=== PATIENT | female | born 1975 | race Caucasian/White ===

== ENCOUNTER 2018-10-01 20:51 | Inpatient (IN) | payer MEDICAID ==
[~2018-10-01] VITALS: Ht 172.7 cm; Wt 86.9 kg
[2018-10-01] MEDS ORDERED: ACETAMINOPHEN 500 MG TABLET ONE (21:02)
--- NOTE | 2018-10-01 21:10 | NUR ---
PT GIVEN TYLENOL IN TRIAGE, TOLERATED WELL. EKG TAKEN IN TRIAGE.
[2018-10-01] MEDS ORDERED: THIAMINE 100MG TABLET ONE (21:25)
[2018-10-01] MEDS ORDERED: ONDANSETRON 2MG/ML, 2ML ONE (21:25)
[2018-10-01] MEDS ORDERED: LORazepam 2 MG/ML, 1ML ONE ×3 (21:26→22:30)
[2018-10-01] MEDS ORDERED: PLEASE ENTER ALLERGIES MC SCH (21:30)
[2018-10-01] MEDS ORDERED: LORazepam 2 MG/ML, 1ML IVPush ONE (21:30)
[2018-10-01] MEDS ORDERED: THIAMINE 100MG TABLET PO ONE (21:30)
[2018-10-01] MEDS ORDERED: ACETAMINOPHEN 500 MG TABLET PO ONE (21:30)
[2018-10-01] MEDS ORDERED: ONDANSETRON 2MG/ML, 2ML IVPush ONE (21:30)
[2018-10-01] MEDS ORDERED: SODIUM CHLORIDE 0.9% 1,000ML IVBOLUS ONE (21:30)
[2018-10-01] MEDS ORDERED: PLEASE ENTER HEIGHT AND WEIGHT MC SCH (21:30)
[2018-10-01 21:38] LABS: BASOPHILS # (AUTO) 0.03 x10^3/uL (0-0.1); BASOPHILS % (AUTO) 1 % (0-1); EOSINOPHILS # (AUTO) 0.04 x10^3/uL (0-0.4); EOSINOPHILS % (AUTO) 1 % (1-7); LYMPHOCYTES # (AUTO) 0.97 x10^3/uL (1-3.4); LYMPHOCYTES % (AUTO) 17 % (22-44); MD NO; MEAN CORPUSCULAR HGB CONC 32.2 g/dL (32.4-35.8); MEAN CORPUSCULAR VOLUME 93.2 fL (80-100); MEAN PLATELET VOLUME 8.6 fL (7.4-10.4); MONOCYTES # (AUTO) 0.32 x10^3/uL (0.2-0.8); MONOCYTES % (AUTO) 6 % (2-9); NEUTROPHILS # (AUTO) 4.28 x10^3/uL (1.8-6.8); NEUTROPHILS % (AUTO) 76 % (42-75); PLATELET COUNT 140 x10^3/uL (130-400); RED BLOOD COUNT 3.92 x10^6/uL (3.82-5.3); RED CELL DISTRIBUTION WIDTH 18.7 % (9.6-15.2)
[2018-10-01 21:47] LABS: ANION GAP 12 mmol/L (5-15); CALCIUM 8.3 mg/dL (8.5-10.1); CHLORIDE 102 mmol/L (98-107); CREATININE 0.52 mg/dL (0.55-1.02)
[2018-10-01] MEDS: LORazepam 2 MG/ML, 1ML IVPush PRN ×3 (21:53→23:07)
--- NOTE | 2018-10-01 22:02 | NUR ---
REPORT RECEIVED FROM SHAYNE PENDLETON.
--- NOTE | 2018-10-01 22:38 | NUR ---
PT MEDICATED PER EMAR. PT TOLERATED WELL.
--- NOTE | 2018-10-01 22:38 | NUR ---
PT AMB TO BR WITH STEADY GAIT.
[2018-10-01 22:59] LABS: MICROSCOPIC NOT IND
[2018-10-01 23:02] LABS: CULTURE INDICATED? NO
--- NOTE | 2018-10-01 23:11 | NUR ---
PT MEDICATED PER EMAR. PT TOLERATED WELL. RESPS EVEN AND UNLABORED. ALL MONITORS IN PLACE. CALL LIGHT WITHIN REACH.
[2018-10-01] MEDS ORDERED: ONDANSETRON 2MG/ML, 2ML IVPush PRN (23:30)
[2018-10-01] MEDS ORDERED: POTASSIUM CHLORIDE 20 MEQ TAB.ER.PRT ONE (23:30)
[2018-10-01] MEDS ORDERED: POLYETHYLENE GLYCOL 17 GM PACKET PO PRN (23:30)
[2018-10-01] MEDS ORDERED: POTASSIUM CHLORIDE 20 MEQ TAB.ER.PRT PO ONE (23:30)
[2018-10-01] MEDS ORDERED: BISACODYL 10 MG SUPP PR PRN (23:30)
[2018-10-01] MEDS ORDERED: HEPARIN 5,000 UNITS/ML, 1ML ONE (23:41)
[2018-10-01] MEDS ORDERED: NICOTINE 7 MG/24 HR PATCH.TD24 ONE (23:42)
[2018-10-01] MEDS: NICOTINE 7 MG/24 HR PATCH.TD24 TD SCH (23:44)
[2018-10-01] MEDS: HEPARIN 5,000 UNITS/ML, 1ML SQ SCH (23:45)
--- NOTE | 2018-10-01 23:50 | NUR ---
MEDICATION ORDERED FROM PHARMACY NOW.
--- NOTE | 2018-10-01 23:50 | NUR ---
PT MEDICATED PER EMAR. NICOTINE PATCH PLACED ON RIGHT UPPER ARM.
--- NOTE | 2018-10-01 23:58 | NUR ---
REPORT GIVEN TO SHAUN PENDLETON. ALL QUESTIONS ANSWERED.
[2018-10-02] MEDS ORDERED: CHLORDIAZEPOXIDE 25 MG CAPSULE PO PRN
[2018-10-02] MEDS ORDERED: CEFTRIAXONE PMX 1GM/50ML 50 ML IV ONE
[2018-10-02 00:09] VITALS: BP 143/82
[2018-10-02] MEDS ORDERED: MAGNESIUM SULFATE PMX 2GM/50ML 50 ML IV ONE ×2 (00:30→11:30)
[2018-10-02] MEDS: NS + 20MEQ KCL 1,000 ML IV SCH ×3 (00:32→16:51)
[2018-10-02 01:34] LABS: BASOPHILS # (AUTO) 0.03 x10^3/uL (0-0.1); BASOPHILS % (AUTO) 1 % (0-1); EOSINOPHILS # (AUTO) 0.03 x10^3/uL (0-0.4); EOSINOPHILS % (AUTO) 1 % (1-7); LYMPHOCYTES # (AUTO) 1.12 x10^3/uL (1-3.4); LYMPHOCYTES % (AUTO) 23 % (22-44); MD NO; MEAN CORPUSCULAR HEMOGLOBIN 30.5 pg (27.0-34.8); MEAN CORPUSCULAR HGB CONC 32.6 g/dL (32.4-35.8); MEAN CORPUSCULAR VOLUME 93.5 fL (80-100); MEAN PLATELET VOLUME 8.5 fL (7.4-10.4); MONOCYTES # (AUTO) 0.26 x10^3/uL (0.2-0.8); MONOCYTES % (AUTO) 5 % (2-9); NEUTROPHILS # (AUTO) 3.44 x10^3/uL (1.8-6.8); NEUTROPHILS % (AUTO) 71 % (42-75); PLATELET COUNT 119 x10^3/uL (130-400); RED BLOOD COUNT 3.43 x10^6/uL (3.82-5.3); RED CELL DISTRIBUTION WIDTH 18.2 % (9.6-15.2)
[2018-10-02 01:45] LABS: ALANINE AMINOTRANSFERASE 71 U/L (12-78); ALBUMIN 2.5 g/dL (3.4-5.0); ANION GAP 7 mmol/L (5-15); CALCIUM 7.7 mg/dL (8.5-10.1); CHLORIDE 104 mmol/L (98-107); CREATININE 0.48 mg/dL (0.55-1.02)
[2018-10-02 01:47] LABS: ALKALINE PHOSPHATASE 158 U/L (45-117); TOTAL PROTEIN 6.8 g/dL (6.4-8.2)
[2018-10-02] MEDS: LORazepam 2 MG/ML, 1ML IVPush PRN ×3 (05:42→20:26)
[2018-10-02 06:57] VITALS: BP_SYST 142; BP_SYST 78; BP_DIAS 82; BP_DIAS 87
[2018-10-02] MEDS: HEPARIN 5,000 UNITS/ML, 1ML SQ SCH ×3 (07:30→23:43)
[2018-10-02 07:43] VITALS: BP 142/87
[2018-10-02] MEDS: THIAMINE 100MG TABLET PO SCH ×2 (08:14→20:26)
[2018-10-02] MEDS: MULTIVITAMINS/MINERALS TABLET PO SCH (08:14)
[2018-10-02] MEDS: FOLIC ACID 1 MG TABLET PO SCH (08:14)
[2018-10-02] MEDS: SENNA/DOCUSATE TABLET PO SCH (09:00)
[2018-10-02] MEDS: ACETAMINOPHEN 325 MG TABLET PO PRN (13:18)
[2018-10-02 15:04] VITALS: BP 132/78
[2018-10-02] MEDS: CHLORDIAZEPOXIDE 25 MG CAPSULE PO SCH ×2 (16:54→20:25)
[2018-10-02 18:16] VITALS: BP 124/77
[2018-10-02] MEDS: NICOTINE 7 MG/24 HR PATCH.TD24 TD SCH (23:30)
[2018-10-03 00:24] VITALS: BP 125/57
[2018-10-03] MEDS: LORazepam 2 MG/ML, 1ML IVPush PRN ×3 (00:38→12:33)
[2018-10-03] MEDS: NS + 20MEQ KCL 1,000 ML IV SCH ×3 (02:56→19:59)
[2018-10-03 06:02] LABS: MEAN CORPUSCULAR HEMOGLOBIN 30.4 pg (27.0-34.8); MEAN CORPUSCULAR HGB CONC 32.7 g/dL (32.4-35.8); MEAN CORPUSCULAR VOLUME 92.7 fL (80-100); RED BLOOD COUNT 3.39 x10^6/uL (3.82-5.3); RED CELL DISTRIBUTION WIDTH 18.6 % (9.6-15.2)
[2018-10-03 06:05] LABS: ALBUMIN 2.2 g/dL (3.4-5.0); ANION GAP 6 mmol/L (5-15); CALCIUM 7.3 mg/dL (8.5-10.1); CHLORIDE 104 mmol/L (98-107)
[2018-10-03 06:08] LABS: ALANINE AMINOTRANSFERASE 50 U/L (12-78); ALKALINE PHOSPHATASE 143 U/L (45-117); BILIRUBIN,TOTAL 2.4 mg/dL (0.2-1.0); CREATININE 0.43 mg/dL (0.55-1.02); TOTAL PROTEIN 6.5 g/dL (6.4-8.2)
[2018-10-03 06:26] LABS: BASOPHILS # (AUTO) 0.02 x10^3/uL (0-0.1); BASOPHILS % (AUTO) 0 % (0-1); EOSINOPHILS # (AUTO) 0.04 x10^3/uL (0-0.4); EOSINOPHILS % (AUTO) 1 % (1-7); LYMPHOCYTES # (AUTO) 0.85 x10^3/uL (1-3.4); LYMPHOCYTES % (AUTO) 19 % (22-44); MD SCAN; MEAN PLATELET VOLUME 8.9 fL (7.4-10.4); MONOCYTES # (AUTO) 0.39 x10^3/uL (0.2-0.8); MONOCYTES % (AUTO) 9 % (2-9); NEUTROPHILS # (AUTO) 3.23 x10^3/uL (1.8-6.8); NEUTROPHILS % (AUTO) 71 % (42-75); PLATELET COUNT 96 x10^3/uL (130-400)
[2018-10-03] MEDS: CHLORDIAZEPOXIDE 25 MG CAPSULE PO SCH ×3 (08:12→19:59)
[2018-10-03] MEDS: FOLIC ACID 1 MG TABLET PO SCH (08:12)
[2018-10-03] MEDS: MULTIVITAMINS/MINERALS TABLET PO SCH (08:12)
[2018-10-03] MEDS: SENNA/DOCUSATE TABLET PO SCH (08:12)
[2018-10-03] MEDS: THIAMINE 100MG TABLET PO SCH ×2 (08:12→20:00)
[2018-10-03] MEDS: HEPARIN 5,000 UNITS/ML, 1ML SQ SCH ×2 (08:13→15:19)
[2018-10-03 08:39] VITALS: BP 121/76
[2018-10-03 12:30] VITALS: BP 119/77
[2018-10-03] MEDS: ACETAMINOPHEN 325 MG TABLET PO PRN (15:19)
[2018-10-03] MEDS ORDERED: KETOROLAC 30 MG/1 ML IVPush PRN (17:00)
[2018-10-03 19:54] VITALS: BP 118/73
[2018-10-03] MEDS: NICOTINE 7 MG/24 HR PATCH.TD24 TD SCH (20:00)
[2018-10-03 21:05] LABS: AMPHETAMINE SCREEN, URINE Positive (Negative); BARBITURATE SCREEN, URINE Positive (Negative); BENZODIAZEPINE SCREEN, URINE Positive (Negative); CANNABINOID SCREEN, URINE Negative (Negative); COCAINE SCREEN, URINE Negative (Negative); METHADONE SCREEN, URINE Negative (Negative); OPIATE SCREEN, URINE Negative (Negative)
[2018-10-04] MEDS: HEPARIN 5,000 UNITS/ML, 1ML SQ SCH ×4 (00:11→23:52)
[2018-10-04 00:37] VITALS: BP 110/74
[2018-10-04] MEDS: LORazepam 2 MG/ML, 1ML IVPush PRN ×3 (01:53→10:59)
[2018-10-04] MEDS: NS + 20MEQ KCL 1,000 ML IV SCH ×2 (04:34→13:44)
[2018-10-04 06:35] VITALS: BP 112/74
[2018-10-04 08:38] LABS: MEAN CORPUSCULAR HGB CONC 32.5 g/dL (32.4-35.8); MEAN CORPUSCULAR VOLUME 92.3 fL (80-100); RED BLOOD COUNT 3.39 x10^6/uL (3.82-5.3); RED CELL DISTRIBUTION WIDTH 18.5 % (9.6-15.2)
[2018-10-04 08:45] LABS: ALANINE AMINOTRANSFERASE 44 U/L (12-78); ALBUMIN 2.1 g/dL (3.4-5.0); ANION GAP 7 mmol/L (5-15); CALCIUM 7.6 mg/dL (8.5-10.1); CHLORIDE 109 mmol/L (98-107); CREATININE 0.36 mg/dL (0.55-1.02)
[2018-10-04 08:47] LABS: ALKALINE PHOSPHATASE 149 U/L (45-117); BILIRUBIN,TOTAL 1.5 mg/dL (0.2-1.0); TOTAL PROTEIN 6.2 g/dL (6.4-8.2)
[2018-10-04 08:59] LABS: BASOPHILS # (AUTO) 0.01 x10^3/uL (0-0.1); BASOPHILS % (AUTO) 1 % (0-1); EOSINOPHILS # (AUTO) 0.05 x10^3/uL (0-0.4); EOSINOPHILS % (AUTO) 2 % (1-7); LYMPHOCYTES # (AUTO) 0.69 x10^3/uL (1-3.4); LYMPHOCYTES % (AUTO) 23 % (22-44); MD SCAN; MEAN PLATELET VOLUME 8.4 fL (7.4-10.4); MONOCYTES # (AUTO) 0.36 x10^3/uL (0.2-0.8); MONOCYTES % (AUTO) 12 % (2-9); NEUTROPHILS # (AUTO) 1.85 x10^3/uL (1.8-6.8); NEUTROPHILS % (AUTO) 62 % (42-75); PLATELET COUNT 99 x10^3/uL (130-400)
[2018-10-04] MEDS: CHLORDIAZEPOXIDE 25 MG CAPSULE PO SCH ×3 (09:20→20:58)
[2018-10-04] MEDS: MULTIVITAMINS/MINERALS TABLET PO SCH (09:20)
[2018-10-04] MEDS: THIAMINE 100MG TABLET PO SCH ×2 (09:20→20:58)
[2018-10-04] MEDS: SENNA/DOCUSATE TABLET PO SCH (09:20)
[2018-10-04] MEDS: FOLIC ACID 1 MG TABLET PO SCH (09:20)
[2018-10-04 13:11] VITALS: BP 116/59
[2018-10-04] MEDS ORDERED: DIPHENHYDRAMINE 50 MG/ML, 1ML IVPush ONE (14:30)
[2018-10-04] MEDS ORDERED: PROCHLORPERAZINE 5 MG/ML, 2ML IVPush ONE (14:30)
[2018-10-04] MEDS ORDERED: KETOROLAC 30 MG/1 ML IVPush ONE (14:30)
[2018-10-04] MEDS ORDERED: SINCALIDE (KINEVAC) 5 MCG ONE (15:46)
[2018-10-04 19:25] VITALS: BP 113/68
[2018-10-04] MEDS: NICOTINE 7 MG/24 HR PATCH.TD24 TD SCH (23:30)
[2018-10-05 01:25] VITALS: BP 140/92
[2018-10-05] MEDS: NS + 20MEQ KCL 1,000 ML IV SCH (01:41)
[2018-10-05] MEDS: LORazepam 2 MG/ML, 1ML IVPush PRN (01:48)
[2018-10-05 06:20] LABS: MEAN CORPUSCULAR HEMOGLOBIN 29.4 pg (27.0-34.8); MEAN CORPUSCULAR VOLUME 91.8 fL (80-100); MEAN PLATELET VOLUME 8.6 fL (7.4-10.4); PLATELET COUNT 112 x10^3/uL (130-400)
[2018-10-05 06:28] LABS: ALBUMIN 2.1 g/dL (3.4-5.0); ANION GAP 7 mmol/L (5-15); CALCIUM 7.6 mg/dL (8.5-10.1); CHLORIDE 111 mmol/L (98-107)
[2018-10-05 06:34] LABS: ALANINE AMINOTRANSFERASE 40 U/L (12-78); ALKALINE PHOSPHATASE 147 U/L (45-117); BILIRUBIN,TOTAL 1.7 mg/dL (0.2-1.0); CREATININE 0.38 mg/dL (0.55-1.02); TOTAL PROTEIN 6.4 g/dL (6.4-8.2)
[2018-10-05 07:22] LABS: MD YES
[2018-10-05 07:25] LABS: ANISOCYTOSIS 1+; LYMPH#(MANUAL) 0.64 x10^3/uL (1-3.4); LYMPHS% (MANUAL) 29 % (22-44); MONOS#(MANUAL) 0.22 x10^3/uL (0.3-2.7); MONOS% (MANUAL) 10 % (2-9); SEG#(MANUAL) 1.34 x10^3/uL (1.8-6.8); SEGS% (MANUAL) 61 % (42-75)
[2018-10-05 07:26] LABS: <PLATELET ESTIMATE> DECREASED; <PLT MORPHOLOGY> NORMAL PLT MORPH; HYPOCHROMIA 1+
[2018-10-05 07:40] VITALS: BP 123/93
[2018-10-05] MEDS: CHLORDIAZEPOXIDE 25 MG CAPSULE PO SCH ×3 (08:01→21:52)
[2018-10-05] MEDS: MULTIVITAMINS/MINERALS TABLET PO SCH (08:01)
[2018-10-05] MEDS: SENNA/DOCUSATE TABLET PO SCH (08:01)
[2018-10-05] MEDS: HEPARIN 5,000 UNITS/ML, 1ML SQ SCH ×3 (08:01→21:52)
[2018-10-05] MEDS: ACETAMINOPHEN 325 MG TABLET PO PRN (08:01)
[2018-10-05] MEDS: THIAMINE 100MG TABLET PO SCH ×2 (08:01→21:52)
[2018-10-05] MEDS: FOLIC ACID 1 MG TABLET PO SCH (08:01)
[2018-10-05 14:43] VITALS: BP 102/66
[2018-10-05 15:48] LABS: CLOSTRIDIUM DIFFICILE ANTIGEN POSITIVE; CLOSTRIDIUM DIFFICILE TOXIN NEGATIVE (Negative)
[2018-10-05] MEDS: PIPERACILLIN/TAZO/PMX 3.375GM 50 ML IV SCH (16:56)
[2018-10-05 19:26] VITALS: BP 135/80
[2018-10-05] MEDS: NICOTINE 7 MG/24 HR PATCH.TD24 TD SCH (21:52)
[2018-10-06 00:25] VITALS: BP 124/78
[2018-10-06] MEDS: PIPERACILLIN/TAZO/PMX 3.375GM 50 ML IV SCH ×3 (00:49→22:18)
[2018-10-06 06:31] LABS: MEAN CORPUSCULAR HEMOGLOBIN 29.3 pg (27.0-34.8); MEAN CORPUSCULAR HGB CONC 32.2 g/dL (32.4-35.8); MEAN CORPUSCULAR VOLUME 90.9 fL (80-100); MEAN PLATELET VOLUME 7.7 fL (7.4-10.4); PLATELET COUNT 117 x10^3/uL (130-400); RED BLOOD COUNT 3.45 x10^6/uL (3.82-5.3); RED CELL DISTRIBUTION WIDTH 18.5 % (9.6-15.2)
[2018-10-06 06:43] LABS: CHLORIDE 108 mmol/L (98-107)
[2018-10-06 06:51] LABS: ALANINE AMINOTRANSFERASE 36 U/L (12-78); ALKALINE PHOSPHATASE 134 U/L (45-117); ANION GAP 8 mmol/L (5-15); BILIRUBIN,TOTAL 1.3 mg/dL (0.2-1.0); CALCIUM 7.6 mg/dL (8.5-10.1); CREATININE 0.39 mg/dL (0.55-1.02); TOTAL PROTEIN 6.1 g/dL (6.4-8.2)
[2018-10-06 07:04] LABS: MD YES
[2018-10-06 07:11] LABS: BAND#(MANUAL) 0.02 x10^3/uL; BANDS%(MANUAL) 1 % (0-7); BASOS#(MANUAL) 0.02 x10^3/uL (0-0.1); BASOS% (MANUAL) 1 % (0-1); EOS#(MANUAL) 0.02 x10^3/uL (0.0-0.4); EOS% (MANUAL) 1 % (1-7); LYMPH#(MANUAL) 1.14 x10^3/uL (1-3.4); LYMPHS% (MANUAL) 52 % (22-44); MONOS#(MANUAL) 0.15 x10^3/uL (0.3-2.7); MONOS% (MANUAL) 7 % (2-9); REACTIVE LYMPHS # (MANUAL) 0.07 x10^3/uL (0-0); REACTIVE LYMPHS % (MANUAL) 3 % (0-0); SEG#(MANUAL) 0.77 x10^3/uL (1.8-6.8); SEGS% (MANUAL) 35 % (42-75)
[2018-10-06 07:12] LABS: ANISOCYTOSIS 1+
[2018-10-06 07:13] LABS: <PLATELET ESTIMATE> DECREASED; <PLT MORPHOLOGY> NORMAL PLT MORPH
[2018-10-06 08:10] VITALS: BP 92/58
[2018-10-06] MEDS: THIAMINE 100MG TABLET PO SCH ×2 (08:47→21:08)
[2018-10-06] MEDS: MULTIVITAMINS/MINERALS TABLET PO SCH (08:47)
[2018-10-06] MEDS: CHLORDIAZEPOXIDE 25 MG CAPSULE PO SCH ×2 (08:47→21:08)
[2018-10-06] MEDS: FOLIC ACID 1 MG TABLET PO SCH (08:47)
[2018-10-06] MEDS: HEPARIN 5,000 UNITS/ML, 1ML SQ SCH ×2 (08:48→17:29)
[2018-10-06] MEDS: SENNA/DOCUSATE TABLET PO SCH (08:48)
[2018-10-06] MEDS: LORazepam 2 MG/ML, 1ML IVPush PRN ×2 (11:18→22:26)
[2018-10-06 15:00] VITALS: BP 135/91
[2018-10-06 17:05] LABS: HCT (SEDRATE) 31.7 % (34.6-47.8)
[2018-10-06 17:17] LABS: C-REACTIVE PROTEIN, QUANT 1.4 mg/dL (0.02-0.49)
[2018-10-06 20:49] VITALS: BP 125/84
[2018-10-06] MEDS: NICOTINE 7 MG/24 HR PATCH.TD24 TD SCH (23:30)
[2018-10-07 00:26] VITALS: BP 117/74
[2018-10-07] MEDS: HEPARIN 5,000 UNITS/ML, 1ML SQ SCH ×3 (01:15→17:28)
[2018-10-07] MEDS: PIPERACILLIN/TAZO/PMX 3.375GM 50 ML IV SCH ×3 (05:55→23:12)
[2018-10-07 06:18] LABS: ALANINE AMINOTRANSFERASE 38 U/L (12-78); ANION GAP 7 mmol/L (5-15); CALCIUM 7.5 mg/dL (8.5-10.1); CHLORIDE 107 mmol/L (98-107); CREATININE 0.41 mg/dL (0.55-1.02)
[2018-10-07 06:22] LABS: ALKALINE PHOSPHATASE 134 U/L (45-117); BILIRUBIN,TOTAL 1.3 mg/dL (0.2-1.0); TOTAL PROTEIN 6.3 g/dL (6.4-8.2)
[2018-10-07 06:47] LABS: MEAN CORPUSCULAR HEMOGLOBIN 29.2 pg (27.0-34.8); MEAN CORPUSCULAR HGB CONC 32.5 g/dL (32.4-35.8); MEAN CORPUSCULAR VOLUME 89.9 fL (80-100); MEAN PLATELET VOLUME 8.9 fL (7.4-10.4); PLATELET COUNT 134 x10^3/uL (130-400); RED BLOOD COUNT 3.46 x10^6/uL (3.82-5.3); RED CELL DISTRIBUTION WIDTH 18.6 % (9.6-15.2)
[2018-10-07 07:30] LABS: BASOPHILS # (AUTO) 0.01 x10^3/uL (0-0.1); BASOPHILS % (AUTO) 0 % (0-1); EOSINOPHILS # (AUTO) 0.03 x10^3/uL (0-0.4); EOSINOPHILS % (AUTO) 1 % (1-7); LYMPHOCYTES # (AUTO) 1.21 x10^3/uL (1-3.4); LYMPHOCYTES % (AUTO) 44 % (22-44); MD SCAN; MONOCYTES % (AUTO) 11 % (2-9); NEUTROPHILS % (AUTO) 44 % (42-75)
[2018-10-07 08:18] VITALS: BP 117/78
[2018-10-07] MEDS: MULTIVITAMINS/MINERALS TABLET PO SCH (08:21)
[2018-10-07] MEDS: CHLORDIAZEPOXIDE 25 MG CAPSULE PO SCH (08:21)
[2018-10-07] MEDS: THIAMINE 100MG TABLET PO SCH ×2 (08:21→19:56)
[2018-10-07] MEDS: FOLIC ACID 1 MG TABLET PO SCH (08:21)
[2018-10-07] MEDS: SENNA/DOCUSATE TABLET PO SCH (08:25)
[2018-10-07] MEDS: SODIUM CHLORIDE 0.45% 1,000 ML IV SCH ×2 (09:26→17:28)
[2018-10-07 12:06] VITALS: BP 119/76
[2018-10-07] MEDS: LORazepam 2 MG/ML, 1ML IVPush PRN ×2 (12:48→19:56)
[2018-10-07 17:04] LABS: ANA SCREEN NEGATIVE (Negative)
[2018-10-07 19:40] VITALS: BP 106/72
[2018-10-07] MEDS: NICOTINE 7 MG/24 HR PATCH.TD24 TD SCH (23:12)
[2018-10-08] MEDS: HEPARIN 5,000 UNITS/ML, 1ML SQ SCH ×3 (00:34→15:12)
[2018-10-08 01:41] VITALS: BP 96/59
[2018-10-08 02:53] VITALS: BP 107/72
[2018-10-08] MEDS: SODIUM CHLORIDE 0.45% 1,000 ML IV SCH ×2 (03:26→15:08)
[2018-10-08 06:09] LABS: BASOPHILS # (AUTO) 0.01 x10^3/uL (0-0.1); BASOPHILS % (AUTO) 0 % (0-1); EOSINOPHILS # (AUTO) 0.03 x10^3/uL (0-0.4); EOSINOPHILS % (AUTO) 1 % (1-7); LYMPHOCYTES # (AUTO) 1.49 x10^3/uL (1-3.4); LYMPHOCYTES % (AUTO) 48 % (22-44); MD NO; MEAN CORPUSCULAR HEMOGLOBIN 29.8 pg (27.0-34.8); MEAN CORPUSCULAR HGB CONC 32.7 g/dL (32.4-35.8); MEAN CORPUSCULAR VOLUME 91.3 fL (80-100); MEAN PLATELET VOLUME 8.9 fL (7.4-10.4); MONOCYTES # (AUTO) 0.33 x10^3/uL (0.2-0.8); MONOCYTES % (AUTO) 11 % (2-9); NEUTROPHILS # (AUTO) 1.24 x10^3/uL (1.8-6.8); NEUTROPHILS % (AUTO) 40 % (42-75); PLATELET COUNT 136 x10^3/uL (130-400); RED BLOOD COUNT 3.37 x10^6/uL (3.82-5.3); RED CELL DISTRIBUTION WIDTH 18.5 % (9.6-15.2)
[2018-10-08 06:25] LABS: CHLORIDE 109 mmol/L (98-107)
[2018-10-08 06:35] LABS: ALANINE AMINOTRANSFERASE 37 U/L (12-78); ALBUMIN 1.8 g/dL (3.4-5.0); ALKALINE PHOSPHATASE 116 U/L (45-117); ANION GAP 8 mmol/L (5-15); BILIRUBIN,TOTAL 0.9 mg/dL (0.2-1.0); CALCIUM 7.2 mg/dL (8.5-10.1); CREATININE 0.46 mg/dL (0.55-1.02)
[2018-10-08] MEDS: SENNA/DOCUSATE TABLET PO SCH (08:12)
[2018-10-08] MEDS: FOLIC ACID 1 MG TABLET PO SCH (08:38)
[2018-10-08] MEDS: VANCOMYCIN 50 MG/ML ORAL SUSP PO SCH ×3 (08:38→20:39)
[2018-10-08] MEDS: MULTIVITAMINS/MINERALS TABLET PO SCH (08:38)
[2018-10-08] MEDS: PIPERACILLIN/TAZO/PMX 3.375GM 50 ML IV SCH ×2 (08:38→15:07)
[2018-10-08] MEDS: THIAMINE 100MG TABLET PO SCH ×2 (08:38→20:39)
[2018-10-08] MEDS: LORazepam 1MG TABLET PO PRN ×3 (08:39→20:39)
[2018-10-08] MEDS ORDERED: CHLORDIAZEPOXIDE 25 MG CAPSULE PO SCH (09:00)
[2018-10-08 09:53] VITALS: BP 115/74
[2018-10-08 20:10] VITALS: BP 108/75
== END 2018-10-08 23:40 | disposition left against medical advice (07) | DRG 432 ==
LOC: ED 23:22 → EDIP 23:58 → 4WST 10-02 00:02
PROVIDERS: ADMIT Family Medicine; ATTEND Family Medicine
DX: K70.11 Alcoholic hepatitis with ascites (principal); K85.90 Acute pancreatitis without necrosis or infection, unspecified; A04.72 Enterocolitis due to Clostridium difficile, not specified as recurrent; D61.818 Other pancytopenia; R65.10 Systemic inflammatory response syndrome (SIRS) of non-infectious origin without acute organ dysfunction; E87.2 Acidosis; F10.230 Alcohol dependence with withdrawal, uncomplicated; B18.2 Chronic viral hepatitis C; E83.42 Hypomagnesemia; E86.0 Dehydration; Z53.21 Procedure and treatment not carried out due to patient leaving prior to being seen by health care provider; E87.5 Hyperkalemia; F10.220 Alcohol dependence with intoxication, uncomplicated; E87.6 Hypokalemia; Y90.9 Presence of alcohol in blood, level not specified; F12.90 Cannabis use, unspecified, uncomplicated; F17.210 Nicotine dependence, cigarettes, uncomplicated; Z82.49 Family history of ischemic heart disease and other diseases of the circulatory system; Z91.041 Radiographic dye allergy status; Z91.013 Allergy to seafood; Z59.0 Homelessness; Z86.14 Personal history of Methicillin resistant Staphylococcus aureus infection; Z87.440 Personal history of urinary (tract) infections
CPT/HCPCS: 36415; 84145; 87449; 87806; 96361; 99285; J3370; 70450; 71045; 71046; 74176; 76700; 78227; 80048; 80053; 80074; 80307; 81003; 82040; 82550; 83605; 83615; 83690; 83735; 84100; 84132; 84703; 85025; 85651; 86038; 86140; 86200; 86430; 86480; 86592; 86611; 86635; 86638; 87040; 87324; 87471; 87493; 87521; 87522; 87798; 93005; 93306; 96374; 96375; G0378; J0696; J1644; J1885; J2405; J2543; J3480; A9537; C9898; G0475; J0780; J1200; J2060; J2805; J3475; J7030

== ENCOUNTER 2018-11-04 18:11 | Emergency (ER) | payer MEDICAID ==
[~2018-11-04] VITALS: Ht 172.7 cm; Wt 74.0 kg
[2018-11-04 18:58] LABS: BASOPHILS # (AUTO) 0.06 x10^3/uL (0-0.1); BASOPHILS % (AUTO) 1 % (0-1); EOSINOPHILS # (AUTO) 0.04 x10^3/uL (0-0.4); EOSINOPHILS % (AUTO) 1 % (1-7); LYMPHOCYTES # (AUTO) 2.56 x10^3/uL (1-3.4); LYMPHOCYTES % (AUTO) 46 % (22-44); MD NO; MEAN CORPUSCULAR HEMOGLOBIN 30.2 pg (27.0-34.8); MEAN CORPUSCULAR HGB CONC 32.9 g/dL (32.4-35.8); MEAN CORPUSCULAR VOLUME 91.8 fL (80-100); MEAN PLATELET VOLUME 8.2 fL (7.4-10.4); MONOCYTES # (AUTO) 0.47 x10^3/uL (0.2-0.8); MONOCYTES % (AUTO) 9 % (2-9); NEUTROPHILS # (AUTO) 2.44 x10^3/uL (1.8-6.8); NEUTROPHILS % (AUTO) 44 % (42-75); PLATELET COUNT 188 x10^3/uL (130-400); RED BLOOD COUNT 4.05 x10^6/uL (3.82-5.3); RED CELL DISTRIBUTION WIDTH 19.9 % (9.6-15.2)
[2018-11-04] MEDS ORDERED: THIAMINE 100MG TABLET PO ONE (19:00)
[2018-11-04 19:06] LABS: ALANINE AMINOTRANSFERASE 89 U/L (12-78); ALBUMIN 3.2 g/dL (3.4-5.0); ANION GAP 10 mmol/L (5-15); CALCIUM 8.6 mg/dL (8.5-10.1); CHLORIDE 110 mmol/L (98-107); CREATININE 0.55 mg/dL (0.55-1.02)
[2018-11-04 19:09] LABS: ALKALINE PHOSPHATASE 130 U/L (45-117); BILIRUBIN,TOTAL 0.8 mg/dL (0.2-1.0); TOTAL PROTEIN 8.8 g/dL (6.4-8.2)
[2018-11-04] MEDS ORDERED: THIAMINE 100MG TABLET ONE (19:45)
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
[2018-11-04] MEDS ORDERED: LORazepam 1MG TABLET PO ONE (20:00)
[2018-11-04] MEDS ORDERED: CEFTRIAXONE 1,000 MG IM ONE (20:00)
[2018-11-04] MEDS ORDERED: AZITHROMYCIN 500 MG TABLET PO ONE (20:00)
[2018-11-04] MEDS ORDERED: LORazepam 1MG TABLET ONE (20:02)
[2018-11-04] MEDS ORDERED: CEFTRIAXONE 250 MG ONE (20:02)
[2018-11-04] MEDS ORDERED: AZITHROMYCIN 250 MG TABLET ONE (20:02)
--- NOTE | 2018-11-04 20:15 | NUR ---
PT MEDICATED PER EMAR. PT TOLERATED WELL.
[2018-11-04 20:23] LABS: HCG UR SG 1.022 (1.003-1.030)
[2018-11-04 20:25] LABS: MICROSCOPIC INDICATED
[2018-11-04 20:35] LABS: CULTURE INDICATED? YES
[2018-11-04 21:01] VITALS: BP 143/98
--- NOTE | 2018-11-04 21:02 | NUR ---
PT GIVEN DC INSTRUCTIONS AND SCRIPT. PT EDUCATED REGARDING DC MEDICATION. PT'S AOX4. RESPS EVEN AND UNLABORED. NO ACUTE DISTRESS AT DC.
== END 2018-11-04 21:03 | disposition home or self-care (01) ==
LOC: ED 20:48
DX: T76.21XA Adult sexual abuse, suspected, initial encounter (principal); F10.220 Alcohol dependence with intoxication, uncomplicated; N39.0 Urinary tract infection, site not specified; F17.200 Nicotine dependence, unspecified, uncomplicated; Z86.19 Personal history of other infectious and parasitic diseases
CPT/HCPCS: 36415; 80053; 80307; 81001; 81025; 83690; 85025; 87077; 87086; 87491; 87591; 87808; 96372; 99284; J0696; 87186

== ENCOUNTER 2018-12-04 00:26 | Emergency (ER) | payer MEDICAID ==
[~2018-12-04] VITALS: Ht 172.7 cm; Wt 82.0 kg
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
--- NOTE | 2018-12-04 01:35 | NUR ---
PT WAS NOT ABLE TO PROVIDE URINE SAMPLE AT THIS TIME. EDMD OK'D TO GIVE SOME WATER. PT PROVIDED SOME WATER.
[2018-12-04 01:38] LABS: ANION GAP 6 mmol/L (5-15); CALCIUM 8.1 mg/dL (8.5-10.1); CHLORIDE 108 mmol/L (98-107); CREATININE 0.47 mg/dL (0.55-1.02)
[2018-12-04 01:39] LABS: MD YES; MEAN CORPUSCULAR HEMOGLOBIN 30.7 pg (27.0-34.8); MEAN CORPUSCULAR HGB CONC 32.5 g/dL (32.4-35.8); MEAN CORPUSCULAR VOLUME 94.5 fL (80-100); PLATELET COUNT 93 x10^3/uL (130-400); RED BLOOD COUNT 2.97 x10^6/uL (3.82-5.3); RED CELL DISTRIBUTION WIDTH 21.4 % (9.6-15.2)
--- NOTE | 2018-12-04 01:40 | NUR ---
PT TO CT NOW.
[2018-12-04] MEDS ORDERED: DIPHENHYDRAMINE 50 MG/ML, 1ML ONE (01:50)
[2018-12-04] MEDS ORDERED: methylPREDNISolone SOD SUCC 125 MG/2 ML ONE (01:51)
[2018-12-04 01:58] LABS: BAND#(MANUAL) 0.06 x10^3/uL; BANDS%(MANUAL) 2 % (0-7); EOS#(MANUAL) 0.06 x10^3/uL (0.0-0.4); EOS% (MANUAL) 2 % (1-7); LYMPH#(MANUAL) 0.78 x10^3/uL (1-3.4); LYMPHS% (MANUAL) 26 % (22-44); MONOS#(MANUAL) 0.33 x10^3/uL (0.3-2.7); MONOS% (MANUAL) 11 % (2-9); SEG#(MANUAL) 1.77 x10^3/uL (1.8-6.8); SEGS% (MANUAL) 59 % (42-75)
[2018-12-04] MEDS ORDERED: DIPHENHYDRAMINE 50 MG/ML, 1ML IVPush ONE (02:00)
[2018-12-04] MEDS ORDERED: methylPREDNISolone SOD SUCC 125 MG/2 ML IVPush SCH (02:00)
[2018-12-04 02:01] LABS: ANISOCYTOSIS 1+
[2018-12-04 02:02] LABS: <PLATELET ESTIMATE> DECREASED; <PLT MORPHOLOGY> NORMAL PLT MORPH; HYPOCHROMIA 1+
--- NOTE | 2018-12-04 02:04 | NUR ---
PT MEDICATED PER EMAR AT CT PER EDMD ORDER. PT TOLERATED WELL.
--- NOTE | 2018-12-04 02:10 | NUR ---
PT IS BACK TO ROOM FROM CT NOW.
[2018-12-04 02:24] LABS: CULTURE INDICATED? YES; MICROSCOPIC INDICATED
--- NOTE | 2018-12-04 02:56 | NUR ---
REPORT GIVEN TO ALEXANDER PENDLETON.
--- NOTE | 2018-12-04 03:00 | NUR ---
REPORT RECEIVED AND CARE ASSUMED. PT RESTING WITH EYES CLOSED. VSS. NO S/S OF ACUTE DISTRESS. ERP IN TO RECHECK AND DISCUSS POC.
[2018-12-04 03:20] VITALS: BP 106/70
[2018-12-04] MEDS ORDERED: OMNIPAQUE 350 MG/ML, 100ML BOTTLE ONE (06:42)
== END 2018-12-04 03:31 | disposition home or self-care (01) ==
LOC: ED 01:00
DX: K70.11 Alcoholic hepatitis with ascites (principal); R51 Headache; F10.20 Alcohol dependence, uncomplicated; R00.0 Tachycardia, unspecified; D53.9 Nutritional anemia, unspecified; F17.200 Nicotine dependence, unspecified, uncomplicated
CPT/HCPCS: 36415; 70450; 71045; 71275; 80048; 81001; 85025; 85379; 87086; 93005; 96374; 96375; 99284; J1200; J2930; Q9967

== ENCOUNTER 2019-03-21 16:04 | Emergency (ER) | payer MEDICAID ==
[~2019-03-21] VITALS: Ht 172.7 cm; Wt 71.0 kg
[2019-03-21 16:11] VITALS: BP 143/80
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
--- NOTE | 2019-03-21 17:42 | NUR ---
UA/DOA COLLECTED AND WALKED TO LAB.
[2019-03-21 17:45] LABS: ALBUMIN 2.6 g/dL (3.4-5.0); ANION GAP 11 mmol/L (5-15); CALCIUM 8.6 mg/dL (8.5-10.1); CHLORIDE 107 mmol/L (98-107)
[2019-03-21 17:48] LABS: ALANINE AMINOTRANSFERASE 52 U/L (12-78); ALKALINE PHOSPHATASE 151 U/L (45-117); BILIRUBIN,TOTAL 0.9 mg/dL (0.2-1.0); CREATININE 0.67 mg/dL (0.55-1.02); TOTAL PROTEIN 9.2 g/dL (6.4-8.2)
[2019-03-21 17:57] LABS: HCG UR SG 1.018 (1.003-1.030); MICROSCOPIC INDICATED
[2019-03-21 18:02] LABS: AMPHETAMINE SCREEN, URINE Positive (Negative); BARBITURATE SCREEN, URINE Negative (Negative); BENZODIAZEPINE SCREEN, URINE Negative (Negative); CANNABINOID SCREEN, URINE Positive (Negative); COCAINE SCREEN, URINE Negative (Negative); METHADONE SCREEN, URINE Negative (Negative); OPIATE SCREEN, URINE Negative (Negative)
[2019-03-21 18:04] LABS: CULTURE INDICATED? YES
[2019-03-21 18:12] LABS: MEAN CORPUSCULAR HGB CONC 32.5 g/dL (32.4-35.8); MEAN PLATELET VOLUME 8.8 fL (7.4-10.4); PLATELET COUNT 111 x10^3/uL (130-400); RED BLOOD COUNT 3.12 x10^6/uL (3.82-5.3); RED CELL DISTRIBUTION WIDTH 23.9 % (9.6-15.2)
[2019-03-21] MEDS ORDERED: KETOROLAC 30 MG/1 ML ONE (18:17)
[2019-03-21] MEDS ORDERED: DIAZEPAM 5 MG TABLET ONE (18:17)
--- NOTE | 2019-03-21 18:22 | NUR ---
ERP AWARE OF ETOH, 0.143. OKAY TO MEDICATE PT. PT MEDICATED PER EMAR
--- NOTE | 2019-03-21 18:35 | NUR ---
MEAL TRAY PROVIDED. PACKET FAXED TO [facility] BY ARLETTE FRANCISCO. AWAITING ACCEPTANCE FOR [facility] TRANSPORT TO RECEIVING FACILITY
[2019-03-21 18:48] LABS: MD YES
[2019-03-21 18:51] LABS: BAND#(MANUAL) 0.13 x10^3/uL; BANDS%(MANUAL) 3 % (0-7); BASOS#(MANUAL) 0.04 x10^3/uL (0-0.1); BASOS% (MANUAL) 1 % (0-1); EOS#(MANUAL) 0.09 x10^3/uL (0.0-0.4); EOS% (MANUAL) 2 % (1-7); LYMPH#(MANUAL) 1.59 x10^3/uL (1-3.4); LYMPHS% (MANUAL) 37 % (22-44); MONOS#(MANUAL) 0.13 x10^3/uL (0.3-2.7); MONOS% (MANUAL) 3 % (2-9); SEG#(MANUAL) 2.32 x10^3/uL (1.8-6.8); SEGS% (MANUAL) 54 % (42-75)
[2019-03-21 18:52] LABS: ANISOCYTOSIS 2+
[2019-03-21 18:53] LABS: MICROCYTOSIS 1+; POLYCHROMASIA 1+
[2019-03-21 18:54] LABS: <PLATELET ESTIMATE> DECREASED; <PLT MORPHOLOGY> NORMAL PLT MORPH
[2019-03-21] MEDS ORDERED: POTASSIUM CHLORIDE 20 MEQ PACKET ONE (18:54)
[2019-03-21] MEDS ORDERED: POTASSIUM CHLORIDE 20 MEQ PACKET PO SCH (19:00)
[2019-03-21] MEDS ORDERED: DIAZEPAM 5 MG TABLET PO ONE (19:00)
[2019-03-21] MEDS ORDERED: KETOROLAC 30 MG/1 ML IM ONE (19:00)
--- NOTE | 2019-03-21 19:28 | NUR ---
pt not in room upon medical social consultant
== END 2019-03-22 04:59 | disposition left against medical advice (07) ==
LOC: ED 03-22 04:49
DX: S09.8XXA Other specified injuries of head, initial encounter (principal); M47.892 Other spondylosis, cervical region; R07.89 Other chest pain; D69.6 Thrombocytopenia, unspecified; N39.0 Urinary tract infection, site not specified; R31.9 Hematuria, unspecified; E87.6 Hypokalemia; F10.10 Alcohol abuse, uncomplicated; F15.10 Other stimulant abuse, uncomplicated; F12.10 Cannabis abuse, uncomplicated; F17.200 Nicotine dependence, unspecified, uncomplicated; Z91.041 Radiographic dye allergy status; Z91.013 Allergy to seafood; Z88.8 Allergy status to other drugs, medicaments and biological substances; Y04.0XXA Assault by unarmed brawl or fight, initial encounter; Y93.89 Activity, other specified; Y92.89 Other specified places as the place of occurrence of the external cause; Y99.8 Other external cause status; Y90.9 Presence of alcohol in blood, level not specified
CPT/HCPCS: 36415; 70450; 71101; 72125; 80053; 80307; 81001; 81025; 85025; 87077; 87086; 87186; 96372; 99284; J1885

== ENCOUNTER 2019-06-24 12:56 | Emergency (ER) | payer MEDICAID ==
[~2019-06-24] VITALS: Ht 172.7 cm; Wt 70.1 kg
[2019-06-24 13:42] LABS: MEAN CORPUSCULAR HEMOGLOBIN 26.1 pg (27.0-34.8); MEAN CORPUSCULAR HGB CONC 31.8 g/dL (32.4-35.8); MEAN CORPUSCULAR VOLUME 82.1 fL (80-100); MEAN PLATELET VOLUME 8.3 fL (7.4-10.4); PLATELET COUNT 126 x10^3/uL (130-400); RED CELL DISTRIBUTION WIDTH 23.2 % (9.6-15.2)
[2019-06-24 13:53] LABS: ALANINE AMINOTRANSFERASE 43 U/L (12-78); ALBUMIN 3.1 g/dL (3.4-5.0); ANION GAP 7 mmol/L (5-15); CALCIUM 8.4 mg/dL (8.5-10.1); CHLORIDE 105 mmol/L (98-107)
[2019-06-24 14:03] LABS: ALKALINE PHOSPHATASE 106 U/L (45-117); BILIRUBIN,TOTAL 0.5 mg/dL (0.2-1.0); TOTAL PROTEIN 8.5 g/dL (6.4-8.2)
--- NOTE | 2019-06-24 14:11 | NUR ---
TO ROOM FROM LOBBY. NAD.
[2019-06-24 14:17] LABS: BASOPHILS # (AUTO) 0.04 x10^3/uL (0-0.1); BASOPHILS % (AUTO) 1 % (0-1); EOSINOPHILS # (AUTO) 0.06 x10^3/uL (0-0.4); EOSINOPHILS % (AUTO) 1 % (1-7); LYMPHOCYTES # (AUTO) 1.16 x10^3/uL (1-3.4); LYMPHOCYTES % (AUTO) 19 % (22-44); MONOCYTES # (AUTO) 0.66 x10^3/uL (0.2-0.8); MONOCYTES % (AUTO) 11 % (2-9); NEUTROPHILS # (AUTO) 4.23 x10^3/uL (1.8-6.8); NEUTROPHILS % (AUTO) 69 % (42-75)
[2019-06-24 14:18] LABS: MD SCAN
[2019-06-24 14:50] LABS: CULTURE INDICATED? YES; MICROSCOPIC INDICATED
[2019-06-24] MEDS ORDERED: DIPHENHYDRAMINE 50 MG/ML, 1ML ONE (14:57)
[2019-06-24] MEDS ORDERED: METOCLOPRAMIDE 5 MG/ML, 2ML ONE (14:57)
[2019-06-24] MEDS ORDERED: KETOROLAC 30 MG/1 ML ONE (14:57)
[2019-06-24 15:00] LABS: AMPHETAMINE SCREEN, URINE Positive (Negative); BARBITURATE SCREEN, URINE Negative (Negative); BENZODIAZEPINE SCREEN, URINE Negative (Negative); CANNABINOID SCREEN, URINE Negative (Negative); COCAINE SCREEN, URINE Negative (Negative); METHADONE SCREEN, URINE Negative (Negative); OPIATE SCREEN, URINE Negative (Negative)
[2019-06-24] MEDS ORDERED: SODIUM CHLORIDE 0.9% 1,000ML IVBOLUS ONE (15:00)
[2019-06-24] MEDS ORDERED: KETOROLAC 30 MG/1 ML IVPush ONE (15:00)
[2019-06-24] MEDS ORDERED: METOCLOPRAMIDE 5 MG/ML, 2ML IVPush ONE (15:00)
[2019-06-24] MEDS ORDERED: SODIUM CHLORIDE FLUSH 10ML SYR IVF ONE (15:00)
[2019-06-24] MEDS ORDERED: DIPHENHYDRAMINE 50 MG/ML, 1ML IVPush ONE (15:00)
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
[2019-06-24] MEDS ORDERED: CEFTRIAXONE PMX 1GM/50ML 50 ML IV ONE (16:00)
[2019-06-24] MEDS ORDERED: CEFTRIAXONE PMX 1GM/50ML 50 ML ONE (16:37)
--- NOTE | 2019-06-24 16:46 | NUR ---
PT UP TO BATHROOM. RETURNED TO BED, COMFORTABLE, BREATHING UNLABORED, NO SIGNS OF DISTRESS.
--- NOTE | 2019-06-24 17:19 | NUR ---
PT IN BED, RESTING, NO SIGNS OF DISTRESS. SNACKS AT BEDSIDE. ABX INFUSING.
[2019-06-24 18:01] VITALS: BP 132/70
== END 2019-06-24 18:09 | disposition home or self-care (01) ==
LOC: ED 14:39
DX: N30.00 Acute cystitis without hematuria (principal); R00.0 Tachycardia, unspecified; F12.10 Cannabis abuse, uncomplicated; F15.10 Other stimulant abuse, uncomplicated; F17.200 Nicotine dependence, unspecified, uncomplicated
CPT/HCPCS: 36415; 71046; 80053; 80307; 81001; 84443; 84703; 85025; 87077; 87086; 93005; 96374; 96375; 99285; J0696; J1200; J1885; J2765; J7030; 87186

== ENCOUNTER 2019-12-28 20:30 | Emergency (ER) | payer SELFPAY ==
[~2019-12-28] VITALS: Ht 175.3 cm; Wt 75.4 kg
[~2019-12-28 20:30] MED LIST: ATROPINE SYRINGE 0.1 MG/ML, 10ML ONE; CODE BLUE RESPONSE XX ONE; EPINEPHRINE SYRINGE 0.1 MG/ML, 10ML ONE
--- NOTE | 2019-12-28 20:49 | NUR ---
This rn at bedside for assistance in code blue
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
--- NOTE | 2019-12-28 21:21 | NUR ---
SEE PAPER CHART FOR CODE/CPR SHEET
[2019-12-28] MEDS ORDERED: LORazepam 2 MG/ML, 1ML ONE (21:24)
[2019-12-28] MEDS ORDERED: EPINEPHRINE SYRINGE 0.1 MG/ML, 10ML ONE (21:26)
[2019-12-28] MEDS ORDERED: SUCCINYLCHOLINE 20 MG/ML, 10ML ONE (21:27)
[2019-12-28] MEDS ORDERED: NALOXONE 1 MG/ML, 2ML ONE (21:27)
[2019-12-28] MEDS ORDERED: SODIUM BICARB 8.4%, 50ML SYRINGE ONE (21:27)
[2019-12-28] MEDS ORDERED: ROCURONIUM 10 MG/ML,10ML ONE (21:27)
[2019-12-28] MEDS ORDERED: ETOMIDATE 20 MG/10 ML ONE (21:27)
[2019-12-28] MEDS ORDERED: MAGNESIUM SULFATE 1 GM/2 ML ONE (21:27)
--- NOTE | 2019-12-28 21:47 | NUR ---
[facility]ICE NOTIFIED AND STATES THEY ARE SENDING AN RESIDENT CARE TECHNICIAN HERE NOW
--- NOTE | 2019-12-28 21:51 | NUR ---
[employer]OR [employer] NOTIFIED. PER LOUIS CALZADA WITH DONOR NETWORK, PT NOT SUITABLE FOR ORGAN OR TISSUE DONATION. REFERENCE NUMBER [id number]
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
--- NOTE | 2019-12-28 22:16 | NUR ---
POWER PLANT MANAGER AT BEDSIDE Addendum: 12/28/19 at 2340 by NARESHO DARIN SIMMONS
--- NOTE | 2019-12-28 22:38 | NUR ---
PT TAKEN TO [place] OFFICE FOR AUTOPSY
--- NOTE | 2019-12-28 23:40 | NUR ---
CRISTINA GENAO CALLED AND GIVEN UPDATE. [phone]
[2019-12-29] MEDS ORDERED: LORazepam 2 MG/ML, 1ML IVPush ONE (01:00)
== END 2019-12-28 23:42 | disposition expired ==
LOC: EDBD 20:30 → MERGE 20:30 → ED 21:10
DX: I46.9 Cardiac arrest, cause unspecified (principal)
CPT/HCPCS: 31605; 92950; 99291; J0330; J0461; J2310; J3475; 96374; J2060